=== PATIENT | male | born 1975 | race Caucasian/White ===

== ENCOUNTER 2017-04-08 06:21 | Emergency (ER) | payer OTHER ==
[~2017-04-08] VITALS: Ht 180.3 cm; Wt 99.8 kg
[~2017-04-08 06:21] MED LIST: IBUP-1953 PO
--- NOTE | 2017-04-08 06:44 | NUR ---
DR. COHEN AT BEDSIDE FOR MSE.
--- NOTE | 2017-04-08 06:54 | NUR ---
Patient discharged to home in stable conditon. Written and verbal after care instructions given. Patient verbalizes understanding of instructions. PATIENT LEFT WITH STABLE GAIT.
[2017-04-08 06:55] VITALS: BP 129/91
== END 2017-04-08 06:57 | disposition home or self-care (01) ==
LOC: ER 06:23
DX: J40 Bronchitis, not specified as acute or chronic (principal); F17.200 Nicotine dependence, unspecified, uncomplicated
CPT/HCPCS: 99283; A4663

== ENCOUNTER 2018-09-03 06:04 | Emergency (ER) | payer OTHER ==
[~2018-09-03] VITALS: Ht 180.3 cm; Wt 102.1 kg
--- NOTE | 2018-09-03 06:37 | NUR ---
DR. LERMA AT BEDSIDE FOR MSE.
--- NOTE | 2018-09-03 06:46 | NUR ---
Patient discharged to home in stable conditon. Written and verbal after care instructions given. Patient verbalizes understanding of instructions. PATIENT LEFT WITH STABLE GAIT.
[2018-09-03 06:48] VITALS: BP 148/83
== END 2018-09-03 06:48 | disposition home or self-care (01) ==
LOC: ER 06:12
DX: H66.92 Otitis media, unspecified, left ear (principal); F17.200 Nicotine dependence, unspecified, uncomplicated; Z79.1 Long term (current) use of non-steroidal anti-inflammatories (NSAID)
CPT/HCPCS: A4663

== ENCOUNTER 2019-04-04 11:37 | Emergency (ER) | payer OTHER, MEDICAID ==
[~2019-04-04] VITALS: Ht 180.3 cm; Wt 102.1 kg
--- NOTE | 2019-04-04 11:54 | NUR ---
ERMD at bedside for MSE
--- NOTE | 2019-04-04 12:01 | NUR ---
Patient placed in a C-collar
--- NOTE | 2019-04-04 13:32 | NUR ---
Patient discharged to home in stable conditon. Written and verbal after care instructions given. Patient verbalizes understanding of instructions. Patient ambulated with stable gait.
[2019-04-04 13:33] VITALS: BP 120/82
== END 2019-04-04 13:33 | disposition home or self-care (01) ==
LOC: ER 11:37
DX: S13.4XXA Sprain of ligaments of cervical spine, initial encounter (principal); M54.12 Radiculopathy, cervical region; F17.200 Nicotine dependence, unspecified, uncomplicated; Z79.1 Long term (current) use of non-steroidal anti-inflammatories (NSAID); V49.49XA Driver injured in collision with other motor vehicles in traffic accident, initial encounter; Y93.89 Activity, other specified; Y92.410 Unspecified street and highway as the place of occurrence of the external cause; Y99.8 Other external cause status
CPT/HCPCS: 72125; A4663

== ENCOUNTER 2019-05-25 20:06 | Emergency (ER) | payer MEDICAID ==
[~2019-05-25] VITALS: Ht 180.3 cm; Wt 99.8 kg
--- NOTE | 2019-05-25 21:04 | NUR ---
Dr Sanon into eval patient.
[2019-05-25] MEDS ORDERED: IBUPROFEN 800 MG TABLET PO ONE (21:15)
[2019-05-25] MEDS ORDERED: IBUPROFEN 800 MG TABLET ONE (21:29)
--- NOTE | 2019-05-25 22:25 | NUR ---
Patient discharged to home in stable conditon. Written and verbal after care instructions given. Patient verbalizes understanding of instructions. Walked out of ER with no distress noted.
[2019-05-25 22:26] VITALS: BP 145/88
== END 2019-05-25 22:27 | disposition home or self-care (01) ==
LOC: ER 20:06
DX: M26.621 Arthralgia of right temporomandibular joint (principal); F17.200 Nicotine dependence, unspecified, uncomplicated; Z79.1 Long term (current) use of non-steroidal anti-inflammatories (NSAID)
CPT/HCPCS: 70486; A4663

== ENCOUNTER 2019-08-03 18:39 | Emergency (ER) | payer MEDICAID ==
[~2019-08-03] VITALS: Ht 180.3 cm; Wt 102.1 kg
--- NOTE | 2019-08-03 20:13 | NUR ---
Pt alert and oriented x 4. Brought himself to ER with c/o dizziness, and feeling of fullness on the right side of the face. MD ordered Stroke assessment to be done, no signs of stroke noted. NIHSS scale perfect. EKG done. Safety precautions maintainded. Ambulatory with steady gait at this time.
--- NOTE | 2019-08-03 20:13 | NUR ---
Correction to previous note: Pt alert and oriented x 4. Brought himself to ER with c/o dizziness, and feeling of fullness on the right side of the face. EKG done. Safety precautions maintained. Ambulatory with steady gait at this time.
[2019-08-03 20:14] LABS: BASOPHILS % (AUTO) 0.4 % (0.0-2.0); EOSINOPHILS # (AUTO) 0.1 K/uL (0.0-0.7); EOSINOPHILS % (AUTO) 1.7 % (0.0-7.0); HEMATOCRIT 42.2 % (36.7-47.1); HEMOGLOBIN 14.4 g/dL (12.5-16.3); LYMPHOCYTES # (AUTO) 1.9 K/uL (20.0-40.0); LYMPHOCYTES % (AUTO) 27.1 % (20.5-51.5); MEAN CORPUSCULAR HEMOGLOBIN 29.1 uug (23.8-33.4); MEAN CORPUSCULAR HGB CONC 34 g/dL (32.5-36.3); MONOCYTES # (AUTO) 0.6 K/uL (2.0-10.0); MONOCYTES % (AUTO) 9.4 % (0.0-11.0); NEUTROPHILS # (AUTO) 4.2 K/uL (1.8-8.9); NEUTROPHILS % (AUTO) 61.4 % (38.5-71.5); PLATELET COUNT (AUTO) 204 K/uL (152-348); RED BLOOD CELL COUNT(AUTO) 4.96 MIL/uL (4.06-5.63); WHITE BLOOD COUNT (AUTO) 6.9 K/uL (3.6-10.2)
[2019-08-03 20:35] LABS: CREATININE 1.1 mg/dL (0.6-1.3); POTASSIUM 4.2 mmol/L (3.5-5.1)
--- NOTE | 2019-08-03 20:45 | NUR ---
Dr. Armendariz at [facility] for MSE Addendum: 08/03/19 at 2243 by BOBBY ALEGRIA RN incorrect time, should be 1950.
--- NOTE | 2019-08-03 20:50 | NUR ---
Patient discharged to home in stable condition. Written and verbal after care instructions given. Patient verbalizes understanding of instructions. Stressed follow up or return to ER for worsening s/s. Pt advised to have pick him up if he is still feeling slightly dizzy, safety instructions emphasized, patient verbalized understanding.
[2019-08-03 20:54] VITALS: BP 120/77
== END 2019-08-03 20:35 | disposition home or self-care (01) ==
LOC: ER 18:44
DX: H81.391 Other peripheral vertigo, right ear (principal); H65.91 Unspecified nonsuppurative otitis media, right ear; I45.10 Unspecified right bundle-branch block
CPT/HCPCS: 36415; 85025; 93005; A4663

== ENCOUNTER 2019-08-06 11:13 | Emergency (ER) | payer MEDICAID ==
[~2019-08-06] VITALS: Ht 180.3 cm; Wt 102.1 kg
--- NOTE | 2019-08-06 11:44 | NUR ---
Patient discharged to home in stable condition. Written and verbal after care instructions given. Patient verbalizes understanding of instructions. Stressed follow up or return to ER for worsening s/s.
== END 2019-08-06 11:45 | disposition home or self-care (01) ==
LOC: ER 11:13
DX: H66.91 Otitis media, unspecified, right ear (principal); H81.311 Aural vertigo, right ear; M26.69 Other specified disorders of temporomandibular joint
CPT/HCPCS: A4663

== ENCOUNTER 2019-11-30 07:43 | Emergency (ER) | payer MEDICAID ==
[~2019-11-30] VITALS: Ht 172.7 cm; Wt 104.3 kg
[~2019-11-30 07:43] MED LIST changes: +MECL-159 PO
--- NOTE | 2019-11-30 07:50 | NUR ---
PATIENT WAS SEEN BY
--- NOTE | 2019-11-30 08:04 | NUR ---
DC, RX AND FOLLOW UP INSTRUCTIONS GIVEN AND EXPLAINED TO PATIENT WHO STATES HE UNDERSTANDS ALL INSTRUCTIONS
== END 2019-11-30 08:10 | disposition home or self-care (01) ==
LOC: ER 07:43
DX: H00.015 Hordeolum externum left lower eyelid (principal); F17.200 Nicotine dependence, unspecified, uncomplicated; M54.12 Radiculopathy, cervical region; R03.0 Elevated blood-pressure reading, without diagnosis of hypertension
CPT/HCPCS: A4663

== ENCOUNTER 2020-04-15 19:58 | Emergency (ER) | payer MEDICAID ==
[~2020-04-15] VITALS: Ht 177.8 cm; Wt 102.1 kg
[2020-04-15 20:33] LABS: *BILIRUBIN,URIN NEGATIVE (NEGATIVE); *BLOOD, URINE NEGATIVE (NEGATIVE); *CLARITY,URINE CLEAR (CLEAR); *COLOR,URINE YELLOW (YELLOW); *KETONES,URINE NEGATIVE (NEGATIVE); *UROBILINOGEN,URINE 0.2 E.U./dl (NORMAL); LEUKOCYTE ESTERASE ,URINE NEGATIVE (NEGATIVE); NITRITE, URINE NEGATIVE (NEGATIVE); PH,URINE 5.5 (5.0-8.0); UGLUCOSE NEGATIVE (NEGATIVE)
[2020-04-15] MEDS ORDERED: ONDANSETRON ODT 4 MG TAB.RAPDIS SL ONE (20:45)
[2020-04-15] MEDS ORDERED: ASPIRIN 81 MG TAB.CHEW PO ONE (20:45)
[2020-04-15] MEDS ORDERED: IBUPROFEN 600 MG TABLET PO ONE (20:45)
[2020-04-15] MEDS ORDERED: HYDROCODONE/APAP 10-325 MG TABLET PO ONE (20:45)
[2020-04-15] MEDS ORDERED: ONDANSETRON ODT 4 MG TAB.RAPDIS ONE (21:08)
[2020-04-15] MEDS ORDERED: IBUPROFEN 600 MG TABLET ONE (21:08)
[2020-04-15] MEDS ORDERED: ASPIRIN 81 MG TAB.CHEW ONE (21:08)
[2020-04-15] MEDS ORDERED: HYDROCODONE/APAP 10-325 MG TABLET ONE (21:09)
[2020-04-15 21:27] LABS: BASOPHILS % (AUTO) 0.5 % (0.0-2.0); EOSINOPHILS # (AUTO) 0.2 K/uL (0.0-0.7); EOSINOPHILS % (AUTO) 2.7 % (0.0-7.0); HEMATOCRIT 46.1 % (36.7-47.1); HEMOGLOBIN 15.7 g/dL (12.5-16.3); LYMPHOCYTES # (AUTO) 2.5 K/uL (20.0-40.0); MEAN CORPUSCULAR HEMOGLOBIN 28.9 uug (23.8-33.4); MEAN CORPUSCULAR HGB CONC 34 g/dL (32.5-36.3); MEAN CORPUSCULAR VOLUME 84.7 fL (73.0-96.2); MONOCYTES # (AUTO) 0.6 K/uL (2.0-10.0); MONOCYTES % (AUTO) 9.3 % (0.0-11.0); NEUTROPHILS # (AUTO) 2.8 K/uL (1.8-8.9); NEUTROPHILS % (AUTO) 46.5 % (38.5-71.5); PLATELET COUNT (AUTO) 214 K/uL (152-348); RED BLOOD CELL COUNT(AUTO) 5.44 MIL/uL (4.06-5.63); WHITE BLOOD COUNT (AUTO) 6.1 K/uL (3.6-10.2)
[2020-04-15 21:35] LABS: CARBON DIOXIDE 30 mmol/L (21-32); CHLORIDE 104 mmol/L (98-107); CREATININE 1.1 mg/dL (0.6-1.3); GLUCOSE 118 mg/dL (74-106); UREA NITROGEN, BLOOD 22 mg/dL (7-18)
[2020-04-15 21:47] LABS: ALANINE AMINOTRANSFERASE 69 U/L (16-63); ALKALINE PHOSPHATASE 54 U/L (50-136); ASPARTATE AMINOTRANSFERASE 23 U/L (15-37); BILIRUBIN,DIRECT < 0.1 mg/dL (0.0-0.2); BILIRUBIN,TOTAL 0.4 mg/dL (0.2-1.0)
--- NOTE | 2020-04-15 23:54 | NUR ---
EKG/LABS/CXR DONE EARLIER, PRESENTLY PT RESTING ON A GUERNEY, AWAITING FOR 2ND TROPONIN TEST DUE AT 0005
--- NOTE | 2020-04-16 00:58 | NUR ---
IV removed. Catheter intact and site benign. Pressure and 4x4 gauze applied to site. No bleeding noted.
[2020-04-16 01:02] VITALS: BP 128/89
== END 2020-04-16 01:03 | disposition home or self-care (01) ==
LOC: ER 19:59
DX: R07.9 Chest pain, unspecified (principal); R10.9 Unspecified abdominal pain; Z87.891 Personal history of nicotine dependence; Z79.899 Other long term (current) drug therapy; I49.8 Other specified cardiac arrhythmias; I45.10 Unspecified right bundle-branch block; Z98.890 Other specified postprocedural states
CPT/HCPCS: 36415; 70030-TC; 71045; 85025; 93005; A4663; Q0162

== ENCOUNTER 2021-10-16 19:33 | Emergency (ER) | payer SELFPAY ==
[~2021-10-16 19:33] MED LIST changes: -MECL-159 PO
== END 2021-10-16 21:00 | disposition left against medical advice (07) ==
LOC: ER 19:34
DX: Z53.21 Procedure and treatment not carried out due to patient leaving prior to being seen by health care provider (principal)

== ENCOUNTER 2024-11-22 13:20 | Emergency (ER) | payer MEDICAID ==
[~2024-11-22] VITALS: Ht 180.3 cm; Wt 108.9 kg
[2024-11-22 14:01] LABS: PLATELET COUNT (AUTO) 193 K/uL (152-348); RED BLOOD CELL COUNT(AUTO) 5.32 MIL/uL (4.06-5.63); RED CELL DISTRIBUTION WIDTH 13.6 % (12.1-16.2); WHITE BLOOD COUNT (AUTO) 5.5 K/uL (3.6-10.2)
[2024-11-22 14:10] LABS: CREATININE 0.9 mg/dL (0.6-1.3); SODIUM SERUM 143 mmol/L (136-145); UREA NITROGEN, BLOOD 22 mg/dL (7-18)
[2024-11-22 14:16] LABS: ASPARTATE AMINOTRANSFERASE 13 U/L (15-37); TOTAL PROTEIN, SERUM 7.6 g/dL (6.4-8.2)
[2024-11-22] MEDS ORDERED: KETOROLAC TROMETHAMINE 15 MG INJ ONE (14:26)
[2024-11-22] MEDS: KETOROLAC TROMETHAMINE 15 MG INJ IVP ONE (14:30)
[2024-11-22 17:00] VITALS: BP 112/72
[2024-11-22] MEDS ORDERED: PRED50TA PO (17:27)
[2024-11-22] MEDS ORDERED: HYDR-3972 PO (17:27)
[2024-11-22] MEDS ORDERED: DEXAMETHASONE SOD PHOSPHATE 4 MG INJ ONE (17:41)
[2024-11-22] MEDS: DEXAMETHASONE SOD PHOSPHATE 4 MG INJ IV ONE (17:45)
[2024-11-22 18:29] VITALS: BP 112/72; TEMP 98; O2SAT 99
== END 2024-11-22 18:29 | disposition home or self-care (01) ==
LOC: ER 13:20
DX: R07.89 Other chest pain (principal); R09.1 Pleurisy; Z88.7 Allergy status to serum and vaccine; Z87.19 Personal history of other diseases of the digestive system; Z87.39 Personal history of other diseases of the musculoskeletal system and connective tissue; Z87.2 Personal history of diseases of the skin and subcutaneous tissue; Z87.09 Personal history of other diseases of the respiratory system; Z86.69 Personal history of other diseases of the nervous system and sense organs
CPT/HCPCS: 99285; 96374; 71045; 96375; 80076; 80048; 83880; 85025; 85379; 85730; 84484 ×2; 36415; 93005; J1885; J1100; A4606; A4663

== ENCOUNTER 2024-11-27 09:40 | Emergency (ER) | payer MEDICAID ==
[~2024-11-27] VITALS: Ht 180.3 cm; Wt 104.3 kg
[~2024-11-27 09:40] MED LIST changes: +HYDR-3972 PO; +PRED50TA PO
[2024-11-27] MEDS ORDERED: KETOROLAC TROMETHAMINE 15 MG INJ ONE (11:04)
[2024-11-27] MEDS ORDERED: DEXAMETHASONE SOD PHOSPHATE 10 MG INJ ONE (11:04)
[2024-11-27] MEDS: DEXAMETHASONE SOD PHOSPHATE 4 MG INJ IV ONE (11:10)
[2024-11-27] MEDS: KETOROLAC TROMETHAMINE 15 MG INJ IVP ONE (11:12)
[2024-11-27 11:14] LABS: PLATELET COUNT (AUTO) 193 K/uL (152-348); RED BLOOD CELL COUNT(AUTO) 4.98 MIL/uL (4.06-5.63); RED CELL DISTRIBUTION WIDTH 13.9 % (12.1-16.2); WHITE BLOOD COUNT (AUTO) 8.7 K/uL (3.6-10.2)
[2024-11-27 11:24] LABS: CREATININE 0.9 mg/dL (0.6-1.3); SODIUM SERUM 137 mmol/L (136-145); UREA NITROGEN, BLOOD 22 mg/dL (7-18)
[2024-11-27 11:30] LABS: ASPARTATE AMINOTRANSFERASE 16 U/L (15-37); TOTAL PROTEIN, SERUM 6.6 g/dL (6.4-8.2)
[2024-11-27] MEDS ORDERED: IOHEXOL 350 100 ML INFUS..BTL ONE (11:42)
[2024-11-27 12:58] VITALS: BP 133/91
[2024-11-27 14:32] VITALS: BP 129/80; O2SAT 98
== END 2024-11-27 14:32 | disposition home or self-care (01) ==
LOC: ER 09:40
DX: R09.1 Pleurisy (principal); R00.1 Bradycardia, unspecified; R06.02 Shortness of breath; R07.9 Chest pain, unspecified; Z79.52 Long term (current) use of systemic steroids; Z88.7 Allergy status to serum and vaccine; Z86.69 Personal history of other diseases of the nervous system and sense organs; Z87.09 Personal history of other diseases of the respiratory system; Z87.19 Personal history of other diseases of the digestive system; Z87.39 Personal history of other diseases of the musculoskeletal system and connective tissue; Z87.2 Personal history of diseases of the skin and subcutaneous tissue
CPT/HCPCS: 99285; 96374; 71275; 71045; 96375; 80076; 80048; 83880; 85025; 85379; 85651; 85730; 84484 ×2; 36415; 93005; J1885; J1100; Q9967; A4606; A4663